=== PATIENT | male | born 1990 | race Caucasian/White ===

== ENCOUNTER 2020-02-03 01:35 | Emergency (ER) | payer OTHER ==
[~2020-02-03] VITALS: Ht 182.9 cm; Wt 127.3 kg
[2020-02-03] MEDS ORDERED: PERCT PO (01:46)
[2020-02-03] MEDS ORDERED: AMOX TR/POT CLAV 875 MG/125 MG TABLET PO ONE (03:00)
[2020-02-03] MEDS ORDERED: IBUPROFEN 600 MG TABLET PO ONE (03:00)
[2020-02-03] MEDS ORDERED: ACETAMINOPHEN 500 MG TABLET PO ONE (03:00)
[2020-02-03 03:12] VITALS: BP 140/88
== END 2020-02-03 03:14 | disposition home or self-care (01) ==
LOC: EMS 01:35
DX: K08.89 Other specified disorders of teeth and supporting structures (principal); F17.210 Nicotine dependence, cigarettes, uncomplicated; Z79.899 Other long term (current) drug therapy
CPT/HCPCS: Z7502; Z7610